=== PATIENT | female | born 1995 | race Caucasian/White ===

== ENCOUNTER 2017-11-13 12:44 | Emergency (ER) | payer OTHER ==
[~2017-11-13] VITALS: Ht 167.6 cm; Wt 62.1 kg
[2017-11-13] MEDS ORDERED: KEFLEX500 MG PO (16:01)
== END 2017-11-13 16:15 | disposition home or self-care (01) ==
LOC: ED 12:44
DX: N39.0 Urinary tract infection, site not specified (principal); F17.200 Nicotine dependence, unspecified, uncomplicated; Z88.5 Allergy status to narcotic agent
CPT/HCPCS: 76705; 80053; 81001; 83690; 84703; 85025; 99284; J2405